=== PATIENT | female | born 1995 | race Caucasian/White ===

== ENCOUNTER 2021-12-22 09:33 | Day surgery (SDC) | payer BC ==
[2021-12-21 03:14] VITALS: BMI 24.9
[2021-12-22] MEDS ORDERED: Famotidine/PF 20 mg/2ml Vial ONE (11:20)
[2021-12-22] MEDS ORDERED: Scopolamine 1.5 mg/72 hour Patch ONE (11:20)
[2021-12-22] MEDS ORDERED: Midazolam HCl 2 mg/2 ml Vial ONE ×2 (11:59→13:26)
[2021-12-22] MEDS ORDERED: CEFAZOLIN 1 GM VIAL ONE (12:04)
[2021-12-22] MEDS ORDERED: Ondansetron PF 4 MG/2 ML Vial ONE (12:09)
[2021-12-22] MEDS ORDERED: Lidocaine 2% PF 5 ML VIAL ONE (12:09)
[2021-12-22] MEDS ORDERED: Dexamethasone 4 mg/ml Vial ONE (12:09)
[2021-12-22] MEDS ORDERED: PROPOFOL 20 ML ONE (12:09)
[2021-12-22] MEDS ORDERED: Ketorolac Tromethamine 30 MG/ML VIAL ONE (12:09)
[2021-12-22] MEDS ORDERED: Fentanyl 100 MCG/2 ML VIAL ONE (12:13)
[2021-12-22] MEDS ORDERED: Methylergonovine 0.2 MG/ML VIAL ONE (13:37)
[2021-12-22] MEDS ORDERED: Methylergonovine 0.2 MG TAB PO SCH (14:00)
== END 2021-12-22 12:50 | disposition home or self-care (01) ==
LOC: CSHSDC 09:33
PROVIDERS: ATTEND Obstetrics & Gynecology
PROC: 10D17ZZ Extraction of Products of Conception, Retained, Via Natural or Artificial Opening (ICD-10-PCS; principal; 2021-12-22)
DX: O03.4 Incomplete spontaneous abortion without complication (principal); I10 Essential (primary) hypertension; G43.909 Migraine, unspecified, not intractable, without status migrainosus; G93.5 Compression of brain; Z87.440 Personal history of urinary (tract) infections; Z79.899 Other long term (current) drug therapy; Z88.5 Allergy status to narcotic agent; Z88.1 Allergy status to other antibiotic agents; Z98.890 Other specified postprocedural states
CPT/HCPCS: 86850; 86900; 86901; 88305; J0690; J1100; J1885; J2001; J2210; J2250; J2405; J2704; J3010; S0028